=== PATIENT | male | born 1990 | race Caucasian/White ===

== ENCOUNTER 2019-02-03 00:17 | Emergency (ER) | payer OTHER ==
[~2019-02-03] VITALS: Ht 170.2 cm; Wt 112.5 kg
[2019-02-03 00:19] VITALS: Ht 170.2 cm; Wt 112.5 kg
[2019-02-03 03:38] VITALS: BP 105/60
== END 2019-02-03 03:38 | disposition home or self-care (01) ==
LOC: ED 00:17
DX: S30.0XXA Contusion of lower back and pelvis, initial encounter (principal); Z88.6 Allergy status to analgesic agent; Z88.5 Allergy status to narcotic agent; X58.XXXA Exposure to other specified factors, initial encounter; Y93.89 Activity, other specified; Y92.89 Other specified places as the place of occurrence of the external cause; Y99.8 Other external cause status
CPT/HCPCS: J1885